=== PATIENT | female | born 2000 | race Hispanic/Latino ===

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

== ENCOUNTER 2021-10-17 11:58 | Emergency (ER) | payer OTHER, SELFPAY ==
[2021-10-17 12:05] VITALS: BP 157/106; PULSE 99; RESP 18; TEMP 36.2; O2SAT 100
--- NOTE | 2021-10-17 15:22 | ED.GENADULT ---
HPI - General Adult General Chief complaint: Animal Bite Stated complaint: I got bit by something Time Seen by Provider: 10/17/21 12:28 Source: patient Mode of arrival: ambulatory Limitations: no limitations History of Present Illness HPI narrative: Patient reports chief complaint of red, swollen wound to the anterior aspect of her left knee that she noticed on Saturday and has increasingly become more swollen, red and painful. Patient reports that she believes that she was bit by some sort of insect. Patient reports that the area has become more painful and swollen after working because she stands on her feet for multiple hours at a time. Patient reports that she is attempting to become but does not believe she is at this time. Patient denies fever, chills, nausea, vomiting, diarrhea or any allergies to any antibiotics. Related Data Home Medications Medication Instructions Recorded Confirmed PNV cmb#95-ferrous fumarate-FA 1 tablet PO DAILY 05/08/20 06/06/20 [] aspirin 81 mg PO DAILY 05/08/20 06/06/20 calcium carbonate-vitamin D3 1 tablet PO DAILY 05/08/20 06/06/20 ferrous gluconate 324 mg PO DAILY 05/08/20 06/06/20 folic acid 1 mg PO DAILY 05/08/20 06/06/20 Allergies Allergy/AdvReac Type Severity Reaction Status Date / Time No Known Allergies Allergy Verified 10/17/21 12:02 Review of Systems Review of Systems: CONSTITUTIONAL: Denies fever, chills, or sweats. EYES: Denies visual changes, redness, or discharge. ENT: Denies rhinorrhea, congestion, sore throat, or otalgia. CARDIOVASCULAR: Denies chest pain, palpitations, or edema. RESPIRATORY: Denies cough or dyspnea. GASTROINTESTINAL: Denies abdominal pain, nausea, vomiting, or diarrhea. GENITOURINARY: Denies dysuria or hematuria. SKIN: Reports wound denies rash or itching. MUSCULOSKELETAL: Denies back pain, joint pain, or myalgia. NEUROLOGIC: Denies headache, numbness, dizziness, or weakness. PSYCHIATRIC: Denies anxiety or depression. Exam Narrative: GENERAL: Well-appearing, well-nourished, and in no acute distress. HEAD: Normocephalic, atraumatic. EYES: PERRLA and EOMI. CHEST: Clear to auscultation. No respiratory distress. No wheezes rales or rhonchi HEART: Regular rate and rhythm. No murmur heard. Normal peripheral pulses. EXTREMITIES: Normal range of motion. No edema. SKIN: There is a drainable pustule to the anterior aspect of the left knee with surrounding cellulitis. Range of motion intact. No bony tenderness. Warm, dry, no rash. NEURO: No focal deficits. Alert and oriented x3. PSYCH: Normal mood and affect. Course Vital Signs Vital signs: Vital Signs Temperature 97.1 F L 10/17/21 12:05 Pulse Rate 99 10/17/21 12:05 Respiratory Rate 18 10/17/21 12:05 Blood Pressure 157/106 H 10/17/21 12:05 Pulse Oximetry 100 10/17/21 12:05 Temperature 97.1 F L 10/17/21 12:05 Pulse Rate 99 10/17/21 12:05 Respiratory Rate 18 10/17/21 12:05 Blood Pressure 157/106 H 10/17/21 12:05 Pulse Oximetry 100 10/17/21 12:05 Procedures Abscess I/D lower extremity: Side (if applicable): left Technique: incised with #11 blade and probed loculations Packing used?: none I&D Results: Pus Abcess I&D Additional Comments: Wound culture taken. Wound care instructions abdominal Medical Decision Making MDM Narrative Medical decision making narrative: Reviewed driving. Wound culture taken. Patient will be placed on Keflex as she has been attempting to become and does not know the status. Patient reports at the primary care that she can follow-up with. Patient instructed to follow-up with primary care for culture report. She states he does not have a known history of MRSA. Patient to follow-up with primary care for reevaluation, sooner if worsening signs of infection present. Patient instructed return to emergency department if she has any worsening or emergent symptoms. Differential
== END 2021-10-17 14:10 | disposition home or self-care (01) ==
PROVIDERS: Emergency Provider Emergency Medicine; PCP Physician Assistant
DX: L02.416 Cutaneous abscess of left lower limb (principal)
CPT/HCPCS: 10060; 87070; 87147; 87186; 87205; 99283

== ENCOUNTER 2023-04-05 14:18 | Emergency (ER) | payer OTHER, SELFPAY ==
--- NOTE | ~2023-04-05 | US_ITS ---
EXAMINATION: US pelvic complete DATE: 04/05/2023 16:48 INDICATION: Vaginal bleeding for 4 weeks Comparison:No prior studies for comparison. TECHNIQUE: Multiple transabdominal and endovaginal sonographic images of the pelvis performed. FINDINGS: The uterus measures 7.8 x 4 x 4.8 cm. The endometrial complex measures 8 mm. The right ovary measures 2.2 x 2 x 2.1 cm. The left ovary is not visualized. There is normal Doppler signal in the right ovary. There is no free fluid in the pelvis. There are no abnormal masses seen on either side. IMPRESSION: 1. Unremarkable pelvic ultrasound. Reviewed, dictated and finalized at location B.
[2023-04-05 14:19] VITALS: BP 151/95; PULSE 78; RESP 15; TEMP 36.3; O2SAT 100
--- NOTE | 2023-04-05 15:12 | ED.FEMALEGU ---
HPI - Female Genitourinary General Chief complaint: Vaginal Bleeding Stated complaint: vb with clots Time Seen by Provider: 04/05/23 14:46 History of Present Illness HPI Narrative: 22-year-old female presents emergency room for evaluation of vaginal bleeding. Patient states that she had Nexplanon put in August 2022, and has been experiencing irregular vaginal bleeding since. Patient states that her periods can last anywhere from 2 to 4 weeks. Denies any abdominal or vaginal pain. Patient denies any known coagulopathies. Patient reports no concerned over STIs. Related Data Home Medications Medication Instructions Recorded Confirmed aspirin 81 mg tablet,delayed 81 mg PO DAILY 05/08/20 06/06/20 release calcium carbonate 600 mg-vitamin 1 tablet PO DAILY 05/08/20 06/06/20 D3 10 mcg (400 unit) tablet ferrous gluconate 324 mg (38 mg 324 mg PO DAILY 05/08/20 06/06/20 iron) tablet folic acid 1 mg tablet 1 mg PO DAILY 05/08/20 06/06/20 vit no.95-ferrous 1 tablet PO DAILY 05/08/20 06/06/20 fumarate 28 mg-folic acid 800 mcg tablet () Allergies Allergy/AdvReac Type Severity Reaction Status Date / Time No Known Allergies Allergy Verified 10/17/21 12:02 Review of Systems Review of Systems: CONSTITUTIONAL: Denies fever, chills, or sweats. EYES: Denies visual changes, redness, or discharge. ENT: Denies rhinorrhea, congestion, sore throat, or otalgia. CARDIOVASCULAR: Denies chest pain, palpitations, or edema. RESPIRATORY: Denies cough or dyspnea. GASTROINTESTINAL: Denies abdominal pain, nausea, vomiting, or diarrhea. GENITOURINARY: Denies dysuria or hematuria. SKIN: Denies rash or itching. MUSCULOSKELETAL: Denies back pain, joint pain, or myalgia. NEUROLOGIC: Denies headache, numbness, dizziness, or weakness. PSYCHIATRIC: Denies anxiety or depression. Exam Narrative: GENERAL: Well-appearing, well-nourished, no physical limitations, and in no acute distress. HEAD: Normocephalic, atraumatic. EYES: Conjunctivae normal, PERRLA and EOMI. CHEST: Clear to auscultation. No respiratory distress. No wheezes rales or rhonchi. HEART: Regular rate and rhythm. No murmur heard. Normal peripheral pulses. ABDOMEN: Soft, nontender, nondistended, normal active bowel sounds. : Blood in the vaginal vault. No evidence of foreign body BACK: No CVA tenderness EXTREMITIES: Normal range of motion. No edema. No clubbing or cyanosis SKIN: Warm, dry, no rash. No noted wounds NEURO: No focal deficits. Alert and oriented x3. MAEW. CN's II-XI intact bilaterally, normal gait PSYCH: Cooperative. Normal mood and affect. Course Vital Signs Vital signs: Vital Signs Temperature 36.3 C L 04/05/23 14:19 Pulse Rate 78 04/05/23 14:19 Respiratory Rate 15 04/05/23 14:19 Blood Pressure 151/95 H 04/05/23 14:19 Pulse Oximetry 100 04/05/23 14:19 Oxygen Delivery Room Air 04/05/23 14:19 Temperature 36.3 C L 04/05/23 14:19 Pulse Rate 78 04/05/23 14:19 Respiratory Rate 15 04/05/23 14:19 Blood Pressure 151/95 H 04/05/23 14:19 Pulse Oximetry 100 04/05/23 14:19 Oxygen Delivery Room Air 04/05/23 14:19 MDM - Female Genitourinary Lab Data 04/05/23 15:18 04/05/23 15:18 Labs: Lab Results 04/05/23 Range/Units 15:18 WBC 8.9 (4.5-10.0) K/mm3 RBC 4.86 (4.2-5.4) M/mm3 Hgb 13.4 (12.0-15.0) g/dL Hct 40.9 (37.0-47.0) % MCV 84.2 (80-100) fl MCH 27.6 (26-34) pg MCHC 32.8 (32-36) g/dl RDW 14.2 (11.5-14.5) % Plt Count 337 (150-375) k/mm3 MPV 10.2 (7.4-10.4) fl Immature Gran % (Auto) 0.4 (0-0.5) % Neut % (Auto) 65.0 (45.5-73.1) % Lymph % (Auto) 27.6 (18.3-44.2) % [place] % (Auto) 4.6 (2.6-8.5) % Eos % (Auto) 1.8 (0-4.4) % Baso % (Auto) 0.6 (0.2-1.2) % Lymph # (Auto) 2.47 (0.9-3.2) K/mm3 [place] # (Auto) 0.4 (0.1-0.6) K/mm3 Eos # (Auto) 0.2 (0-0.3) K/mm3 Baso # (Auto) 0.1 (0.0-0.1) K/mm3 Abs Immat G
[2023-04-05 15:30] LABS: Basophils Absolute Auto 0.1 K/mm3 (0.0-0.1); Basophils Percent Auto 0.6 % (0.2-1.2); Eosinophils Absolute Auto 0.2 K/mm3 (0-0.3); Eosinophils Percent Auto 1.8 % (0-4.4); Hematocrit 40.9 % (37.0-47.0); Hemoglobin 13.4 g/dL (12.0-15.0); Immature Granulocyte Absolute 0.04 K/mm3 (0.00-0.031); Immature Granulocyte Percent A 0.4 % (0-0.5); Lymphocytes Absolute Auto 2.47 K/mm3 (0.9-3.2); Lymphocytes Percent Auto 27.6 % (18.3-44.2); Mean Corpuscular HGB Conc 32.8 g/dl (32-36); Mean Corpuscular Hemoglobin 27.6 pg (26-34); Mean Corpuscular Volume 84.2 fl (80-100); Mean Platelet Volume 10.2 fl (7.4-10.4); Monocytes Absolute Auto 0.4 K/mm3 (0.1-0.6); Monocytes Percent Auto 4.6 % (2.6-8.5); Neutrophils Absolute Auto 5.8 K/mm3 (1.3-6.7); Platelet Count Result 337 k/mm3 (150-375); Red Blood Count 4.86 M/mm3 (4.2-5.4); Red Cell Distribution Width 14.2 % (11.5-14.5); White Blood Count 8.9 K/mm3 (4.5-10.0)
[2023-04-05 15:34] LABS: Appearance Urine Clear (Clear); Bacteria Urine 1+ /hpf; Bilirubin Urine Negative (Negative); Blood Urine 3+ (Negative); Color Urine Yellow (Yellow); Glucose Urine UA Negative (Negative); Ketones Urine Negative (Negative); Leukocyte Esterase Ur Negative LEU/UL (Negative); Nitrate Urine Negative (Negative); Non Pathogenic Casts 0-2; Protein Urine Negative (Negative); Specific Grav Ur 1.017 (1.001-1.035); Squamous Epithelial Cell Urine Occasional /hpf (Few); Urobilinogen Urine 0.2 mg/dL (<2.0); WBC Urine 0-5 /hpf; pH Urine 6.5 (5.0-9.0)
[2023-04-05 15:40] LABS: Alanine Aminotransferase 30 U/L (6-35); Albumin Level 4.3 g/dL (3.5-5.1); Alkaline Phosphatase 99 U/L (38-126); Anion Gap 6 mmol/L (8-16); Aspartate Amino Transferase 27 U/L (14-36); Bilirubin,Total 0.3 mg/dL (0.2-1.3); Blood Urea Nitrogen 12 mg/dL (7-17); Calcium 8.8 mg/dL (8.4-10.2); Carbon Dioxide 28 mmol/L (22-30); Chloride 103 mmol/L (98-107); Estimated CRCL calculation 157 ml/min; Estimated Glomerular Filt Rate > 60; Glucose 100 mg/dL (65-110); Potassium 3.9 mmol/L (3.4-5.0); Sodium 137 mmol/L (137-145)
[2023-04-05 15:41] LABS: Add Urine Microscopic? YES
[2023-04-05 15:47] LABS: Prothrombin Time 13.1 Seconds (11.1-14.7)
[2023-04-05 15:48] LABS: Partial Thromboplastin Time 30.5 SECONDS (22.3-36.8)
== END 2023-04-05 17:52 | disposition home or self-care (01) ==
PROVIDERS: Emergency Provider Nurse Practitioner Family; PCP Physician Assistant
DX: N93.9 Abnormal uterine and vaginal bleeding, unspecified (principal); Z79.82 Long term (current) use of aspirin
CPT/HCPCS: 36415; 76856; 80053; 81001; 81025; 84443; 85025; 85610; 85730; 99284

== ENCOUNTER 2024-04-27 19:56 | Emergency (ER) | payer OTHER, SELFPAY ==
[2024-04-27 20:01] VITALS: BP 164/93; PULSE 64; RESP 20; TEMP 36.6; O2SAT 100
[2024-04-27 20:20] LABS: Basophils Percent Auto 0.4 % (0.2-1.2); Eosinophils Absolute Auto 0.2 K/mm3 (0-0.3); Eosinophils Percent Auto 2.3 % (0-4.4); Hematocrit 38.9 % (37.0-47.0); Hemoglobin 12.7 g/dL (12.0-15.0); Immature Granulocyte Absolute 0.04 K/mm3 (0.00-0.031); Immature Granulocyte Percent A 0.4 % (0-0.5); Lymphocytes Absolute Auto 3.35 K/mm3 (0.9-3.2); Lymphocytes Percent Auto 33.3 % (18.3-44.2); Mean Corpuscular HGB Conc 32.6 g/dl (32-36); Mean Corpuscular Hemoglobin 27.1 pg (26-34); Mean Corpuscular Volume 83.1 fl (80-100); Mean Platelet Volume 10.1 fl (7.4-10.4); Monocytes Absolute Auto 0.4 K/mm3 (0.1-0.6); Monocytes Percent Auto 4.4 % (2.6-8.5); Neutrophils Percent Auto 59.2 % (45.5-73.1); Platelet Count Result 327 k/mm3 (150-375); Red Blood Count 4.68 M/mm3 (4.2-5.4); Red Cell Distribution Width 14.1 % (11.5-14.5); White Blood Count 10.1 K/mm3 (4.5-10.0)
[2024-04-27 20:34] LABS: Alanine Aminotransferase 42 U/L (6-35); Albumin Level 4.5 g/dL (3.5-5.1); Alkaline Phosphatase 93 U/L (38-126); Anion Gap 10 mmol/L (4-12); Aspartate Amino Transferase 31 U/L (14-36); Bilirubin,Total 0.4 mg/dL (0.2-1.3); Blood Urea Nitrogen 15 mg/dL (7-17); Calcium 9.3 mg/dL (8.4-10.2); Carbon Dioxide 27 mmol/L (22-30); Chloride 103 mmol/L (98-107); Estimated CRCL calculation 106 ml/min; Estimated Glomerular Filt Rate > 60; Glucose 101 mg/dL (65-110); Lipase 94 U/L (23-300); Potassium 3.8 mmol/L (3.4-5.0); Sodium 140 mmol/L (137-145)
--- NOTE | 2024-04-27 20:53 | ED.NAVMDI ---
HPI - Nausea/Vomiting/Diarrhea General Chief complaint: Nausea/Vomiting/Diarrhea Stated complaint: diarhea x3 weeks Time Seen by Provider: 04/27/24 20:45 History of Present Illness HPI Narrative: Pt presents with diarrhea 5-7 times a day for 3 weeks. Pt has no abdomina harris other than gas. Pt has not had any recent travel or antibiotic usage and has no exotic pets. Pt denies fever or bloody stools. Pt called PCP and told to come to ER. Related Data Home Medications Medication Instructions Recorded Confirmed aspirin 81 mg tablet,delayed 81 mg PO DAILY 05/08/20 06/06/20 release calcium carbonate 600 mg-vitamin 1 tablet PO DAILY 05/08/20 06/06/20 D3 10 mcg (400 unit) tablet ferrous gluconate 324 mg (38 mg 324 mg PO DAILY 05/08/20 06/06/20 iron) tablet folic acid 1 mg tablet 1 mg PO DAILY 05/08/20 06/06/20 vit no.95-ferrous 1 tablet PO DAILY 05/08/20 06/06/20 fumarate 28 mg-folic acid 800 mcg tablet () Allergies Allergy/AdvReac Type Severity Reaction Status Date / Time No Known Allergies Allergy Verified 10/17/21 12:02 Review of Systems Review of Systems: All systems reviewed & are unremarkable except as noted in HPI and below Exam Const: General: healthy appearing and no acute distress Nutritional Appearance: well nourished Orientation/consciousness: patient oriented x3 Limitations: no limitations HENMT: Mouth: Yes dry mucous membranes Eyes: Pupils: Equal, round and reactive pupils present EOM: EOMs intact bilaterally Neck: Neck: normal visual inspection Resp: Effort & Inspection: normal respiratory effort Auscultation: clear to auscultation bilaterally Cardio: Rate: regular rate Rhythm: regular rhythm GI: GI Palp: Yes Soft to palpation and No Tenderness to palpation present (GI) Auscultation: normal bowel sounds Skin: General skin exam: normal color Wounds: no wounds Neuro: General: patient oriented x3, moves all extremities and no focal motor deficits Cranial nerves: Yes Nystagmus not present Speech: normal speech Extrem: General: normal to inspection and no clubbing, cyanosis or edema Psych: Mental Status: mental status grossly normal Affect: normal affect Attitude: cooperative Course Vital Signs Vital signs: Vital Signs Temperature 97.9 F 04/27/24 20:01 Pulse Rate 64 04/27/24 20:01 Respiratory Rate 20 04/27/24 20:01 Blood Pressure 164/93 H 04/27/24 20:01 Pulse Oximetry 100 04/27/24 20:01 Oxygen Delivery Room Air 04/27/24 20:01 Temperature 98.2 F 04/27/24 21:49 Pulse Rate 81 04/27/24 21:49 Respiratory Rate 16 04/27/24 21:49 Blood Pressure 129/65 04/27/24 21:49 Pulse Oximetry 98 04/27/24 21:49 Oxygen Delivery Room Air 04/27/24 20:01 MDM - Nausea/Vomiting/Diarrhea MDM Narrative Medical decision making narrative: Pt has 5-7 episodes of diarrhea a day for 3 weeks. no antibiotics or travel, labs look fine. will send home with lomotil and stool culture/ o and p order Lab Data 04/27/24 20:13 04/27/24 20:13 Labs: Lab Results 04/27/24 04/27/24 Range/Units 20:13 21:08 WBC 10.1 H (4.5-10.0) K/mm3 RBC 4.68 (4.2-5.4) M/mm3 Hgb 12.7 (12.0-15.0) g/dL Hct 38.9 (37.0-47.0) % MCV 83.1 (80-100) fl MCH 27.1 (26-34) pg MCHC 32.6 (32-36) g/dl RDW 14.1 (11.5-14.5) % Plt Count 327 (150-375) k/mm3 MPV 10.1 (7.4-10.4) fl Immature Gran % (Auto) 0.4 (0-0.5) % Neut % (Auto) 59.2 (45.5-73.1) % Lymph % (Auto) 33.3 (18.3-44.2) % [place] % (Auto) 4.4 (2.6-8.5) % Eos % (Auto) 2.3 (0-4.4) % Baso % (Auto) 0.4 (0.2-1.2) % Lymph # (Auto) 3.35 H (0.9-3.2) K/mm3 [place] # (Auto) 0.4 (0.1-0.6) K/mm3 Eos # (Auto) 0.2 (0-0.3) K/mm3 Baso # (Auto) 0.0 (0.0-0.1) K/mm3 Abs Immat Gran (auto) 0.04 H (0.00-0.031) K/mm3 Absolute Neuts (auto) 6.0 (1.3-6.7) K/mm3 Absolute Nucleated RBC 0.000 (0.0-0.012) K/mm3 Nucleated RB
[2024-04-27 21:33] LABS: Appearance Urine Cloudy (Clear); Bacteria Urine 4+ /hpf; Bilirubin Urine Negative (Negative); Blood Urine Negative (Negative); Color Urine Yellow (Yellow); Glucose Urine UA Negative (Negative); Ketones Urine Negative (Negative); Leukocyte Esterase Ur 1+ LEU/UL (Negative); Need Manual Microscopic Reviewed; Nitrate Urine Negative (Negative); Non Pathogenic Casts 0-2; Protein Urine Negative (Negative); RBC Urine 0-2 /hpf (0-2); Squamous Epithelial Cell Urine Few /hpf (Few); WBC Urine 0-5 /hpf (0-3); pH Urine 6.5 (5.0-9.0)
[2024-04-27 21:34] LABS: Add Urine Microscopic? YES; Specific Grav Ur 1.031 (1.001-1.035)
[2024-04-27] MEDS: NITROFURANTOIN MONOHYD MACROCR 100 MG CAP PO (21:40)
[2024-04-27 21:49] VITALS: BP 129/65; PULSE 81; RESP 16; TEMP 36.8; O2SAT 98
== END 2024-04-27 21:55 | disposition home or self-care (01) ==
PROVIDERS: Emergency Medicine; Emergency Provider Emergency Medicine; PCP Physician Assistant
DX: R19.7 Diarrhea, unspecified (principal); Z79.82 Long term (current) use of aspirin
CPT/HCPCS: 36415; 80053; 81001; 81025; 83690; 85025; 99283; A9270